=== PATIENT | female | born 1940 | race Caucasian/White ===

== ENCOUNTER 2020-08-16 08:43 | Day surgery (SDC) | payer OTHER ==
--- NOTE | 2020-08-13 14:42 | RAD REPORT ---
EXAM DESCRIPTION: RAD - Chest Pa And Lat (2 Views) - 08/13/2020 2:31 pm CLINICAL HISTORY: pre op Chest pain. COMPARISON: CHEST SINGLE VIEW dated 07/20/2015 TECHNIQUE: PA and lateral views of the chest were obtained. FINDINGS: The lungs are hyperexpanded compatible with COPD. The heart is upper limit of normal in si ze. No fracture or aggressive bony process. IMPRESSION: COPD without acute process identified.
[2020-08-13 14:58] LABS: Potassium 4.1 mmol/L (3.5-5.1)
[2020-08-13 14:59] LABS: Absolute Lymphocytes (CBC) 1.9 K/uL (0.7-4.9); Basophils % 1.1 % (0-1.3); Hematocrit 36.3 % (36.0-45.0); Lymphocytes % 26.7 % (15.3-44.8); MPV 8.7 fL (7.6-11.3); RBC Red Blood Cell Count 3.94 M/uL (3.86-4.86)
[2020-08-13 15:07] LABS: Protime INR 1.24
[2020-08-16] MEDS ORDERED: NA CHLORIDE 0.9% 500 ML ONE (09:39)
[2020-08-16] MEDS ORDERED: HEPA 1000U/500MLS 1,000 UNIT/500 ML BAG IV ONE ×2 (11:14→11:15)
[2020-08-16] MEDS ORDERED: LIDOCAINE 1% 20 ML MDV ONE (11:14)
[2020-08-16] MEDS ORDERED: ATROPINE SULF 1 MG/10 ML SYR IV ONE (11:47)
[2020-08-16] MEDS ORDERED: FENTANYL CITR 100 MCG/2 ML ONE (11:47)
[2020-08-16] MEDS ORDERED: MIDAZOLAM HCL 2 MG/2 ML INJ ONE (11:47)
[2020-08-16] MEDS ORDERED: HEPARIN 5000 UNIT/ML 1 ML VIAL ONE (11:47)
[2020-08-16] MEDS ORDERED: ACETYLCYST 20% 4 ML VIAL IH ONE (12:31)
--- NOTE | 2020-08-16 12:56 | OP ---
Surgeon: Jason Yang MD Stevedore Hold: Modesta Wharton. Procedure: Abdominal angiogram with selective bilateral renal angiogram. Indication: Hypertension, abnormal renal Doppler. History Of Present Illness: Ms. Razo is 79, was having issues with uncontrolled hypertension. Homa l Doppler showed bilateral renal artery stenosis. Procedure In Detail: Brought to the seed laboratory technician today, prepped and draped in routine sterile fashion. A 6-Yi sheath introduced in the right common femoral artery successfully. Angiography there was normal. StarClose was used to close the case. A pigtail catheter was initially placed above the lashanda al. Abdominal angiogram showed possible stenosis in bilateral renal artery. We selected the left an d right renals with a JR4. After that, both renal artery showed significant fibromuscular dysplasia about 40% to 50% stenosis bilaterally. There were no complications. Blood Loss: 5 mL. Postoperative Diagnosis: Bilateral renal artery stenosis, fibromuscular dysplasia, moderate. Plan: To continue medical therapy. Anesthesia: Total conscious sedation was 45 minutes. The patient will remain bedrest for 2 hours after the procedure. She will go home today. I will see her in the office in the next 2 weeks. RACHEL/MAXWELL Voice ID: [id number] Report ID: [id number]
[2020-08-16 12:58] VITALS: TEMP 96.1
[2020-08-16 14:12] VITALS: O2SAT 98
[2020-08-16 14:46] VITALS: BP 114/61
--- NOTE | 2020-08-16 17:15 | EKG ---
Test Date: 2020-08-13 Test Time: 14:14:04 Centerless Grinder: MYNOR MEASUREMENT RESULTS: Intervals: Rate: 67 CO: 150 QRSD: 98 QT: 426 QTc: 450 [place]: P: 78 CO: 150 QRS: 79 T: 58 INTERPRETIVE STATEMENTS: Normal sinus rhythm Normal ECG Compared to ECG 07/20/2015 03:44:46 No significant changes Electronically Signed On 08-16-20 17:07:00 VARNISH REMOVER by Jason Yang
== END 2020-08-16 14:46 | disposition home or self-care (01) ==
LOC: CCL 08:43
DX: I70.1 Atherosclerosis of renal artery (principal); I77.3 Arterial fibromuscular dysplasia; I10 Essential (primary) hypertension; I70.213 Atherosclerosis of native arteries of extremities with intermittent claudication, bilateral legs; I65.22 Occlusion and stenosis of left carotid artery; I48.0 Paroxysmal atrial fibrillation; E78.2 Mixed hyperlipidemia; E03.9 Hypothyroidism, unspecified; Z20.822 Contact with and (suspected) exposure to COVID-19; Z88.2 Allergy status to sulfonamides; Z82.49 Family history of ischemic heart disease and other diseases of the circulatory system
CPT/HCPCS: 93005; 85025; 80048; 36415; 85610; 85730; 71046; 36252; U0003; C1893; J2250; J3010; J7040; J1644 ×2